=== PATIENT | female | born 1950 | race Caucasian/White ===

== ENCOUNTER 2017-07-25 10:27 | Emergency (ER) | payer BC ==
[2017-07-25] MEDS ORDERED: Adacel (T-DAP) 0.5 ML VIAL ONE (11:01)
[2017-07-25] MEDS ORDERED: Lidocaine 1% w/Epinephrine 1:100K 20 ML VIAL ONE (11:07)
--- NOTE | 2017-07-25 11:45 | CT ---
CT BRAIN NONCONTRAST: HISTORY: 66-year-old female status post acute head trauma and post-traumatic headache from fall. FINDINGS: There is no midline shift or any other mass effect. There is no evidence of acute intracranial hemor rhage, large cortical infarct, obstructive hydrocephalus, or extraaxial fluid collection. The calvar ium is intact. There is diffuse parenchymal volume loss. There are low attenuation areas in the whi te matter. These are nonspecific, but in a patient of this age, they are probably chronic ischemic w jacqueline matter changes due to microvascular atherosclerosis. IMPRESSION: 1) No acute intracranial findings. 2) Involutional changes and chronic ischemic white matter changes. makayla POS: [facility]
--- NOTE | 2017-07-25 12:16 | CT ---
CT CERVICAL SPINE WITHOUT IV CONTRAST: Date: 07/25/17 HISTORY: Patient reports fall from standing position this morning. Patient now has neck pain and laceration to nose and lip. TECHNIQUE: Contiguous axial CT images are obtained through the cervical spine from the skull base to the T2-3 le adwoa. Sagittal and coronal reformatted images are provided. FINDINGS: There is straightening of the normal cervical lordotic curvature. There are degenerative changes at the C4-5 and C5-6 levels with narrowing of the intervertebral disc spaces at these levels. Osteophytes are seen anteriorly, and to a lesser degree, posteriorly, primari ly at the C5-6 level. There is no significant bony encroachment on the central spinal canal or neural foramina at any level of the cervical spine, although there is probably mild narrowing of the left n eural foramen at the C5-6 level. No fracture or subluxation is seen involving the cervical spine. While there is suggested trace retro listhesis of C5 on C6, this is probably related to the posterior osteophyte formation giving this michelle earance. The vertebral body heights are within normal limits. Prevertebral soft tissues have a normal appearance. There are calcifications seen within the right upper lobe in addition to a parenchymal nodule density with linear densities extending to the pleural surface in the right upper lobe/right lung apex. Thes e findings may be related to areas of scarring, but given nodularity, further evaluation is suggested . Correlation with prior studies would be helpful to determine chronicity of this finding. There is a lso a pleural based nodular density in the superior segment of the right lower lobe, incompletely joan luated on this exam. There is biapical pleural and parenchymal scarring present. IMPRESSION: 1. Nodular density within the right upper lobe measuring 9.0 mm, with associated linear densities an d adjacent calcifications. Findings may be related to chronic lung changes and secondary to scarring. However, no prior comparison studies are available to document stability and chronicity of this find ing. As a result, direct comparison with prior studies is recommended if available. If prior studies are not available, short interval follow-up CT thorax is recommended 3 months. 2. Mild degenerative changes at the C4-5 and C5-6 levels, but no fracture or subluxation is seen inv olving the cervical spine. CODE LN. POS: [facility]
--- NOTE | 2017-07-25 12:20 | CT ---
FACIAL BONES CT: Date: 07/25/17 HISTORY: Fall. Pain. COMPARISON: None. TECHNIQUE: Noncontrast facial bones CT is performed in the axial plane. Coronal and sagittal reformatted images are submitted for interpretation. FINDINGS: Visualized brain parenchyma is unremarkable. Bilateral ocular lenses are appropriately located. Both globes are intact. Retrobulbar fat is preserv ed. Symmetric attenuation of the optic nerves and ocular rectus muscles. Visualized aerodigestive tract is patent. No mucosal abnormality. Midline fatty raphe of the tongue i s preserved. Evaluation of the oral cavity is limited by dental amalgam artifact. Torus villi mandibu myla is noted. The maxilla and mandible are intact. No evidence of fracture. Mandibular condyle has appropriate alignment. There are degenerative changes in the left mandible condyle. There is a laceration involving the left nasal soft tissues. Minimal soft tissue swelling. Small left nasal bone fracture, anterior superior aspect, is suggested. No displaced nasal bone fracture. Nondi splaced left nasal bone fracture is also identified. Bilaterally, ostiomeatal complexes are patent. Intact and midline nasal septum. There is mucosal dise ase involving the right maxillary sinus. Remaining sinuses are appropriately aerated. Adequate mastoi d air cell aeration. IMPRESSION: 1. Left nasal bone fracture with soft tissue laceration. 2. Degenerative changes involving the left mandibular condyle. POS: [facility]
== END 2017-07-25 12:36 | disposition home or self-care (01) ==
LOC: ERS 10:27
DX: S02.2XXA Fracture of nasal bones, initial encounter for closed fracture (principal); S01.511A Laceration without foreign body of lip, initial encounter; S01.21XA Laceration without foreign body of nose, initial encounter; S00.12XA Contusion of left eyelid and periocular area, initial encounter; E03.9 Hypothyroidism, unspecified; E78.5 Hyperlipidemia, unspecified; I10 Essential (primary) hypertension; Z79.899 Other long term (current) drug therapy; W01.198A Fall on same level from slipping, tripping and stumbling with subsequent striking against other object, initial encounter
CPT/HCPCS: 12011; 12052; 70450; 70486; 72125; 90471; 90715; 93005; J2001